=== PATIENT | male | born 1990 ===

== ENCOUNTER 2020-06-24 17:30 | Emergency (ER) | payer SELFPAY ==
[~2020-06-24] VITALS: Ht 193 cm; Wt 99.8 kg
[2020-06-24] MEDS ORDERED: ACETAMINOPHEN500 MG PO (19:02)
[2020-06-24] MEDS ORDERED: NAPR500 PO (19:02)
== END 2020-06-24 19:26 | disposition home or self-care (01) ==
LOC: ER 17:30
DX: S56.312A Strain of extensor or abductor muscles, fascia and tendons of left thumb at forearm level, initial encounter (principal); Z87.828 Personal history of other (healed) physical injury and trauma; X50.1XXA Overexertion from prolonged static or awkward postures, initial encounter; W19.XXXA Unspecified fall, initial encounter; Y92.149 Unspecified place in prison as the place of occurrence of the external cause
CPT/HCPCS: 73130; 96372; 99282-25; J1885